=== PATIENT | female | born 1955 | race Caucasian/White ===

== ENCOUNTER 2018-04-30 19:10 | Emergency (ER) | payer BC ==
--- NOTE | 2018-04-30 19:59 | EDM.PDOC ---
ED HPI GENERAL MEDICAL PROBLEM - General Chief Complaint: Abdominal Pain Stated Complaint: ILLNESS Time Seen by Provider: 04/30/18 19:45 Source of Information: Reports: Patient, RN History Limitations: Reports: Other (no records available) - History of Present Illness INITIAL COMMENTS - FREE TEXT/NARRATIVE: 63 yo female from [place] was seen in her clinic 2 days ago and had blood work and an abdominal X-ray for mild abdominal fullness with constipation. All her blood work was normal, but her X-rays showed a large amt of stool. She was given mag citrate to drink that resulted in a small amount of loose stool only. She has mild nausea without vomiting. No fever. Diffuse abdominal fullness with the worst being in the RUQ. She has had her GB out in the past, but this feels somewhat like her abdomen felt before her GB was removed. Onset: Gradual Onset Date: 04/27/18 Duration: Day(s):, Getting Worse Location: Reports: Abdomen Quality: Reports: Pressure Severity: Moderate Improves with: Reports: None Worsens with: Reports: Other (time) Context: Reports: Other (See HPI) Associated Symptoms: Reports: Loss of Appetite, Nausea/Vomiting (no vomiting), Shortness of Breath (mild). 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) (Mag citrate, Dulcolax orally) Abdomen Pain Score (Numeric/FACES): 5 - Related Data Allergies Allergy/AdvReac Type Severity Reaction Status Date / Time No Known Allergies Allergy Verified 04/30/18 19:37 Home Meds: Home Meds Albuterol/Ipratropium [Combivent Respimat] 1 puff IH ASDIRECTED PRN 04/30/18 [ History] Ramipril 1 tab PO DAILY 04/30/18 [History] atorvaSTATin [Lipitor] 1 tab PO DAILY 04/30/18 [History] hydroCHLOROthiazide [Hydrochlorothiazide] 10 mg PO DAILY 04/30/18 [History] Past Medical History Cardiovascular History: Reports: High Cholesterol, Hypertension Respiratory History: Reports: Asthma 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: - Infectious Disease History Infectious Disease History: Reports: Chicken Pox, Measles, Mumps - Past Surgical History GI Surgical History: Reports: Cholecystectomy Female Surgical History: Reports: Endometrial Ablation, Other (See Below) Other Female Surgeries/Procedures: polyps in uterus removed Social & Family History - Family History Family Medical History: Noncontributory - Tobacco Use Smoking Status *Q: Never Smoker - Caffeine Use Caffeine Use: Reports: Tea - Recreational Drug Use Recreational Drug Use: No ED ROS GENERAL - Review of Systems Review Of Systems: See Below Constitutional: Reports: No Symptoms HEENT: Reports: No Symptoms Respiratory: Reports: Shortness of Breath (mild) Cardiovascular: Reports: No Symptoms Endocrine: Reports: No Symptoms GI/Abdominal: Reports: Abdominal Pain (fullness), Anorexia, Distension, Nausea. Denies: Black Stool, Bloody Stool, Constipation, Diarrhea, Hematemesis, Hematochezia, Melena, Vomiting : Reports: No Symptoms Musculoskeletal: Reports: No Symptoms Skin: Reports: No Symptoms Neurological: Reports: No Symptoms ED EXAM, GI/ABD - Physical Exam Exam: See Below Exam Limited By: No Limitations General Appearance: Alert, WD/WN, No Apparent Distress, Obese Eyes: Bilateral: Normal Appearance Ears: Normal External Exam, Normal Canal, Normal TMs Nose: Normal Inspection, Normal Mucosa, No Blood Throat/Mouth: Normal Inspection, Normal Lips, Normal Oropharynx, Normal Voice, No Airway Compromise Head: Atraumatic, Normocephalic Neck: Normal Inspection, Supple, Non-Tender Respiratory/Chest: No Respiratory Distress, Lungs Clear, Normal Breath Sounds, No Accessory Muscle Use Cardiovascular: Regular Rate, Rhythm, No Edema GI/Abdominal Exam: Normal Bowel Sounds, Soft, No Mass, Distended (mild), Tender (mild diffuse tenderness). No: Non-Tender, No Distention, Guarding, Rigid, Rebound Back Exam: Normal Inspection. No: CVA Tenderness (R), CVA Tenderness (L) Extremities: Normal Inspection, Normal Range of Motion, Non-Tender, No Pedal Edema Neurological: Alert, Oriented, CN II-XII Intact, Normal Cognition, No Motor/ Sensory Deficits Psychiatric: Normal Affect, Normal Mood Skin Exam: Warm, Dry, Intact, Normal Color, No Rash Course - Vital Signs Last Recorded V/S: Last Vital Signs Temp 35.9 C 04/30/18 19:42 Pulse 91 04/30/18 19:42 Resp 18 04/30/18 19:42 BP 162/86 H 04/30/18 19:42 Pulse Ox 99 04/30/18 19:42 - Orders/Labs/Meds Orders: Active Orders 24 hr Category Date Time Status Enema [RC] ASDIRECTED Care 04/30/18 19:53 Active Abdomen Pelvis w Cont [CT] Stat Exams 04/30/18 20:32 Taken UA W/MICROSCOPIC [URIN] Stat Lab 04/30/18 20:06 Ordered NS + KCl 20mEq/L [Normal Saline with 20 mEq KCl] 1,000 Med 04/30/18 20:45 Active ml IV ASDIRECTED Medication Orders Potassium Chloride/Sodium Chloride (Normal Saline With 20 Meq Kcl) 1,000 mls @ 500 mls/hr IV ASDIRECTED BEST Last Admin: 04/30/18 20:50 Dose: 500 mls/hr Labs: Laboratory Tests 04/30/18 04/30/18 04/30/18 Range/Units 20:04 20:04 20:06 WBC 7.2 (4.5-11.0) K/uL RBC 4.84 (3.30-5.50) M/uL Hgb 13.9 (12.0-15.0) g/dL Hct 41.7 (36.0-48.0) % MCV 86 (80-98) fL MCH 29 (27-31) pg MCHC 33 (32-36) % Plt Count 220 (150-400) K/uL Sodium 132 L (140-148) mmol/L Potassium 3.1 L (3.6-5.2) mmol/L Chloride 96 L (100-108) mmol/L Carbon Dioxide 28 (21-32) mmol/L Anion Gap 11.1 (5.0-14.0) mmol/L BUN 7 (7-18) mg/dL Creatinine 0.8 (0.6-1.0) mg/dL Est Cr Clr Drug Dosing 66.45 mL/min Estimated GFR (MDRD) > 60 (>60) Glucose 99 (74-106) mg/dL Calcium 9.0 (8.5-10.1) mg/dL Total Bilirubin 0.9 (0.2-1.0) mg/dL AST 29 (15-37) U/L ALT 47 (12-78) U/L Alkaline Phosphatase 150 H (46-116) U/L C-Reactive Protein 2.41 H (0.0-0.3) mg/dL Total Protein 7.7 (6.4-8.2) g/dL Albumin 3.5 (3.4-5.0) g/dL Globulin 4.2 H (2.3-3.5) g/dL Albumin/Globulin Ratio 0.8 L (1.2-2.2) Urine Color Yellow Urine Appearance Clear Urine pH 7.0 (4.5-8.0) Ur Specific [place] 1.010 (1.008-1.030) Urine Protein Negative (NEGATIVE) mg/dL Urine Glucose (UA) Normal (NEGATIVE) mg/dL Urine Ketones Negative (NEGATIVE) mg/dL Urine Occult Blood Negative (NEGATIVE) Urine Nitrite Negative (NEGATIVE) Urine Bilirubin Negative (NEGATIVE) Urine Urobilinogen Normal (NORMAL) mg/dL Ur Leukocyte Esterase Negative (NEGATIVE) Urine RBC 0-5 (0-5) Urine WBC 0-5 (0-5) Ur Epithelial Cells Moderate Amorphous Sediment Moderate Urine Bacteria Few Urine Mucus Not seen Meds: Medications Generic Name Dose Route Start Last Admin Trade Name Freq PRN Reason Stop Dose Admin Potassium Chloride/Sodium Chloride 1,000 mls @ 500 mls/hr 04/30/18 20:45 20:50 Normal Saline With 20 Meq Kcl IV 500 mls/hr ASDIRECTED BEST Administration Discontinued Medications Generic Name Dose Route Start Last Admin Trade Name Freq PRN Reason Stop Dose Admin Sodium Chloride 100 mls @ 3.5 mls/sec 04/30/18 21:18 04/30/18 21:29 Normal Saline IV 04/30/18 21:19 3 mls/sec ONETIME ONE Administration Iopamidol 141 ml 04/30/18 21:30 04/30/18 21:29 Isovue-300 (61%) IV 141 ml . DIRECTED BEST Administration Potassium Chloride 40 meq 04/30/18 20:29 04/30/18 20:41 Potassium Chloride PO 04/30/18 20:30 40 meq ONETIME ONE Administration Sodium Chloride 10 ml 04/30/18 21:18 04/30/18 21:29 Saline Flush FLUSH 04/30/18 21:19 10 ml ONETIME ONE Administration - Radiology Interpretation Free Text/Narrative:: CT abd/pelvis with IV contrast-negative CT Results Date: 04/30/18 CT Results Time: 21:45 Departure - Departure Time of Disposition: 21:45 Disposition: Home, Self-Care 01 Condition: Fair Clinical Impression: Hyponatremia, Hypokalemia Constipation Qualifiers: Constipation type: unspecified constipation type Qualified Code(s): K59.00 - Constipation, unspecified - Discharge Information *PRESCRIPTION DRUG MONITORING PROGRAM REVIEWED*: Not Applicable *COPY OF PRESCRIPTION DRUG MONITORING REPORT IN PATIENT AMIRA: Not Applicable Instructions: Hypokalemia, Constipation, Adult Referrals: PCP,None [Primary Care Provider] - Forms: ED Department Discharge Additional Instructions: Take Miralax one dose twice daily. Take potassium as directed. Recheck with your doctor no later than Thursday. Return if worse. Acetaminophen as needed for pain relief. - My Orders Last 24 Hours: My Active Orders 04/30/18 19:53 Enema [RC] ASDIRECTED 04/30/18 20:06 UA W/MICROSCOPIC [URIN] Stat 04/30/18 20:32 Abdomen Pelvis w Cont [CT] Stat 04/30/18 20:45 NS + KCl 20mEq/L [Normal Saline with 20 mEq KCl] 1,000 ml IV ASDIRECTED - Assessment/Plan Last 24 Hours: My Active Orders 04/30/18 19:53 Enema [RC] ASDIRECTED 04/30/18 20:06 UA W/MICROSCOPIC [URIN] Stat 04/30/18 20:32 Abdomen Pelvis w Cont [CT] Stat 04/30/18 20:45 NS + KCl 20mEq/L [Normal Saline with 20 mEq KCl] 1,000 ml IV ASDIRECTED
[2018-04-30] MEDS ORDERED: Potassium Chloride 10 MEQ Cap.ER PO ONE (20:29)
[2018-04-30] MEDS ORDERED: NS + KCl 20mEq/L 1,000 ML IV SCH (20:45)
[2018-04-30] MEDS ORDERED: Sodium Chloride 0.9% 10 ML Syringe FLUSH ONE (21:18)
[2018-04-30] MEDS ORDERED: Sodium Chloride 0.9% 100 ML IV ONE (21:18)
[2018-04-30] MEDS ORDERED: Iopamidol 612 MG/ML 150 ML Bottle IV SCH (21:30)
== END 2018-04-30 23:11 | disposition home or self-care (01) ==
LOC: JP.ED 19:10
DX: E87.1 Hypo-osmolality and hyponatremia (principal); E87.6 Hypokalemia; K59.00 Constipation, unspecified; I10 Essential (primary) hypertension; Z79.899 Other long term (current) drug therapy
CPT/HCPCS: 36415; 74177; 80053; 81001; 85027; 86140; 96365; 96366; 99284; A9270; J3480; J7030; J7050

== ENCOUNTER 2020-09-30 17:22 | Emergency (ER) | payer BC ==
--- NOTE | 2020-09-30 18:07 | EDM.PDOC ---
ED HPI GENERAL MEDICAL PROBLEM - General Chief Complaint: Abdominal Pain Stated Complaint: RT SIDE ABD PAIN Time Seen by Provider: 09/30/20 17:51 Source of Information: Reports: Patient History Limitations: Reports: No Limitations - History of Present Illness INITIAL COMMENTS - FREE TEXT/NARRATIVE: Shelly is a 65-year-old female presenting to the ED for evaluation of right upper quadrant pain that started earlier today. Patient has been having these symptoms intermittently for about the last 2 weeks but today it has been fairly persistent. Patient describes the pain as cramping in nature but it predominately stays in the right upper quadrant. She thought she had perhaps some constipation so she took a Dulcolax suppository which resulted in a large bowel movement but no improvement in her pain. She denies any change in diet. She has not had any fever, chills, nausea or vomiting. She does have a history for hyponatremia, hypokalemia, and slow transit constipation. She has not had any urinary symptoms including urgency, frequency, burning with urination, or hematuria. She has no history of kidney stones. The patient also describes the pain as a pressure sensation. It is not changed with respiration. She has had her gallbladder removed in the past. She has no previous history of pancreatitis. Right Abdomen Pain Score (Numeric/FACES): 6 - Related Data Allergies Allergy/AdvReac Type Severity Reaction Status Date / Time No Known Allergies Allergy Verified 09/30/20 17:44 Home Meds: Home Meds Albuterol/Ipratropium [Combivent Respimat] 1 puff IH ASDIRECTED PRN 04/30/18 [History] Ramipril 1 tab PO DAILY 04/30/18 [History] atorvaSTATin [Lipitor] 1 tab PO DAILY 04/30/18 [History] hydroCHLOROthiazide [Hydrochlorothiazide] 10 mg PO DAILY 04/30/18 [History] Potassium Chloride [Klor-Con] 20 meq PO DAILY 30 Days #30 packet 09/30/20 [Rx] Past Medical History Cardiovascular History: Reports: Heart Murmur, High Cholesterol, Hypertension Respiratory History: Reports: Asthma Gastrointestinal History: Reports: Cholelithiasis 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: Endocrine/Metabolic History: Reports: Obesity/BMI 30+ - Infectious Disease History Infectious Disease History: Reports: Chicken Pox, Measles, Mumps - Past Surgical History GI Surgical History: Reports: Cholecystectomy Female Surgical History: Reports: Endometrial Ablation, Other (See Below) Other Female Surgeries/Procedures: polyps in uterus removed Musculoskeletal Surgical History: Reports: Arthroscopic Knee Social & Family History - Family History Family Medical History: No Pertinent Family History - Tobacco Use Tobacco Use Status *Q: Never Tobacco User - Caffeine Use Caffeine Use: Reports: Tea - Recreational Drug Use Recreational Drug Use: No ED ROS GENERAL - Review of Systems Review Of Systems: See Below Constitutional: Reports: No Symptoms HEENT: Reports: No Symptoms Respiratory: Reports: No Symptoms Cardiovascular: Reports: No Symptoms Endocrine: Reports: No Symptoms GI/Abdominal: Reports: Abdominal Pain (Right upper quadrant), Constipation. Denies: Diarrhea, Decreased Appetite, Distension, Nausea, Vomiting : Reports: No Symptoms Musculoskeletal: Reports: No Symptoms Skin: Reports: No Symptoms Neurological: Reports: No Symptoms Psychiatric: Reports: No Symptoms Hematologic/Lymphatic: Reports: No Symptoms Immunologic: Reports: No Symptoms ED EXAM, GI/ABD - Physical Exam Exam: See Below Exam Limited By: No Limitations General Appearance: Alert, No Apparent Distress Eyes: Bilateral: EOMI Head: Atraumatic, Normocephalic Neck: Normal Inspection, Non-Tender Respiratory/Chest: No Respiratory Distress, Lungs Clear, Normal Breath Sounds Cardiovascular: Normal Peripheral Pulses, Regular Rate, Rhythm, No Murmur GI/Abdominal Exam: Soft, No Distention, Tender (Right upper quadrant and epigastric region), Abnormal Bowel Sounds (Mildly diminished bowel sounds), Other (Tympany to percussion across the epigastric region.). No: Guarding, Rigid, Rebound Extremities: Normal Inspection, Normal Range of Motion, No Pedal Edema Neurological: Alert, Oriented, Normal Cognition, No Motor/Sensory Deficits Psychiatric: Normal Affect Skin Exam: Warm, Dry Lymphatic: No Adenopathy Course - Vital Signs Last Recorded V/S: Last Vital Signs Temp 36.6 C 09/30/20 17:49 Pulse 86 09/30/20 17:49 Resp 16 09/30/20 17:49 BP 178/83 H 09/30/20 17:49 Pulse Ox 98 09/30/20 17:49 - Orders/Labs/Meds Orders: Active Orders 24 hr Category Date Time Status Abdomen 2V AP Flat Upright [CR] Stat Exams 09/30/20 17:54 Taken Labs: Laboratory Tests 09/30/20 09/30/20 Range/Units 17:54 17:54 WBC 8.1 (4.5-11.0) K/uL RBC 4.65 (3.30-5.50) M/uL Hgb 13.3 (12.0-15.0) g/dL Hct 40.7 (36.0-48.0) % MCV 88 (80-98) fL MCH 29 (27-31) pg MCHC 33 (32-36) % Plt Count 260 (150-400) K/uL Neut % (Auto) 66 (36-66) % Lymph % (Auto) 22 L (24-44) % [place] % (Auto) 10 H (2-6) % Eos % (Auto) 2 (2-4) % Baso % (Auto) 1 (0-1) % Sodium 135 L (140-148) mmol/L Potassium 2.9 L* (3.6-5.2) mmol/L Chloride 97 L (100-108) mmol/L Carbon Dioxide 25 (21-32) mmol/L Anion Gap 15.9 H (5.0-14.0) mmol/L BUN 7 (7-18) mg/dL Creatinine 0.8 (0.6-1.0) mg/dL Est Cr Clr Drug Dosing 64.77 mL/min Estimated GFR (MDRD) > 60 (>60) Glucose 99 (74-106) mg/dL Calcium 9.1 (8.5-10.1) mg/dL Total Bilirubin 0.5 (0.2-1.0) mg/dL AST 22 (15-37) U/L ALT 35 (12-78) U/L Alkaline Phosphatase 143 H (46-116) U/L Total Protein 7.4 (6.4-8.2) g/dL Albumin 3.5 (3.4-5.0) g/dL Globulin 3.9 H (2.3-3.5) g/dL Albumin/Globulin Ratio 0.9 L (1.2-2.2) Lipase 125 (73-393) U/L Meds: Medications Discontinued Medications Generic Name Dose Route Start Last Admin Trade Name Freq PRN Reason Stop Dose Admin Potassium Chloride 40 meq 09/30/20 18:35 Klor-Con M20 PO 09/30/20 18:36 ONETIME ONE - Radiology Interpretation Free Text/Narrative:: Abdomen 2 view x-ray: Copious amounts of colonic flatus especially across the transverse colon. A scant amount of soft stool in the ascending colon and a scant amount of well-formed stool in the descending colon. No evidence for an obstruction. No air-fluid levels. - Re-Assessments/Exams Free Text/Narrative Re-Assessment/Exam: 09/30/20 18:37 I reviewed the patient's labs showing a normal CBC and comprehensive metabolic panel except for potassium of 2.9. Patient is a history of hypokalemia secondary to being on hydrochlorothiazide. We will give her a dose of K-Vicky 40 mEq here and I will put her on K-Vicky 20 mEq daily for 30 days. Patient encouraged follow-up with her primary care provider to recheck her potassium early next week. Overall, it appears that her abdominal pain is due to excessive flatus and constipation. This may be managed with a simethicone- based product like Gas-X, Gaviscon, or Di-Gel. At this time she is suitable for discharge home in satisfactory condition. Indications return to the ED were discussed. Departure - Departure Time of Disposition: 18:38 Disposition: Home, Self-Care 01 Condition: Good Clinical Impression: Excessive flatus, Hypokalemia Constipation Qualifiers: Constipation type: unspecified constipation type Qualified Code(s): K59.00 - Constipation, unspecified - Discharge Information *PRESCRIPTION DRUG MONITORING PROGRAM REVIEWED*: Not Applicable *COPY OF PRESCRIPTION DRUG MONITORING REPORT IN PATIENT AMIRA: Not Applicable Prescriptions: Potassium Chloride [Klor-Con] 20 meq PO DAILY 30 Days #30 packet Instructions: Hypokalemia, Constipation, Adult, [id number] Referrals: PCP,None [Primary Care Provider] - Forms: ED Department Discharge Care Plan Goals: I would recommend using one of the simethicone-based products like Gas-X, Gaviscon, or Di-Gel to help break up the excessive gas in your intestine. This is likely the cause of your pain. There was no indication of significant constipation, however, you do have some well-formed stool in the sigmoid colon. Increase your fluid intake for the next couple of days which should help improve the transit time of your colon. In addition you were found to have significant hypokalemia (low potassium) which we will treat with the K-Vicky today. I am putting you on it daily for the next 30 days. I encourage you to follow-up with your primary care provider early next week for recheck of your potassium. You are likely losing potassium because of the hydrochlorothiazide as before. That is a diuretic that causes loss of potassium. Sepsis Event Note (ED) - Evaluation Sepsis Screening Result: No Definite Risk - Focused Exam Vital Signs: Vital Signs Temp Pulse Resp BP Pulse Ox 09/30/20 17:49 36.6 C 86 16 178/83 H 98 09/30/20 17:45 36.6 C 86 16 178/83 H 98 - Problem List & Annotations (1) Constipation SNOMED Code(s): 93760653 Code(s): K59.00 - CONSTIPATION, UNSPECIFIED Status: Chronic Priority: Medium Current Visit: Yes Qualifiers: Constipation type: unspecified constipation type Qualified Code(s): K59.00 - Constipation, unspecified (2) Excessive flatus SNOMED Code(s): 95146622 Code(s): R14.3 - FLATULENCE Status: Acute Priority: High Current Visit: Yes (3) Hypokalemia SNOMED Code(s): 16878469 Code(s): E87.6 - HYPOKALEMIA Status: Acute Priority: High Current Visit: Yes - Problem List Review Problem List Initiated/Reviewed/Updated: Yes - My Orders Last 24 Hours: My Active Orders 09/30/20 17:54 Abdomen 2V AP Flat Upright [CR] Stat - Assessment/Plan Last 24 Hours: My Active Orders 09/30/20 17:54 Abdomen 2V AP Flat Upright [CR] Stat
[2020-09-30] MEDS ORDERED: Potassium Chloride 20 MEQ Tab.ER PO ONE (18:35)
--- NOTE | 2020-10-01 09:18 | CR ---
Abdomen 2V AP Flat Upright CLINICAL HISTORY: Abdominal pain FINDINGS: No free air is identified. Small intestinal configuration is nonacute. There is gas and feces are the colon. There are surgical clips in the right upper quadrant. IMPRESSION: Nonacute intestinal gas pattern
== END 2020-09-30 19:03 | disposition home or self-care (01) ==
LOC: JP.ED 17:22
DX: K59.00 Constipation, unspecified (principal); R14.3 Flatulence; E87.6 Hypokalemia; E78.00 Pure hypercholesterolemia, unspecified; I10 Essential (primary) hypertension; J45.909 Unspecified asthma, uncomplicated; E66.9 Obesity, unspecified; Z79.899 Other long term (current) drug therapy; Z68.34 Body mass index [BMI] 34.0-34.9, adult
CPT/HCPCS: 36415; 74019; 80053; 83690; 85025; 99284; A9270; 99283